=== PATIENT | male | born 1960 | race Caucasian/White ===

== ENCOUNTER 2020-02-16 00:50 | Emergency (ER) | payer OTHER, SELFPAY ==
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
[2020-02-16 00:50] VITALS: BP 145/75; PULSE 88; RESP 20; TEMP 36.2; O2SAT 97
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
--- NOTE | 2020-02-16 01:50 | PC.NURSE ---
pt arranging ride with employer.
== END 2020-02-16 02:01 | disposition home or self-care (01) ==
PROVIDERS: Emergency Provider Emergency Medicine
DX: S63.501A Unspecified sprain of right wrist, initial encounter (principal); S53.401A Unspecified sprain of right elbow, initial encounter; V89.2XXA Person injured in unspecified motor-vehicle accident, traffic, initial encounter
CPT/HCPCS: 29125; 73080; 73110; 99283; A4565